=== PATIENT | male | born 1975 ===

== ENCOUNTER → 2024-08-07 06:20 | Day surgery (SDC) | payer BC, SELFPAY | LOC: GI 06:20 | PROVIDERS: ATTENDING PHYSICIAN Surgery | DX: Z12.11 Encounter for screening for malignant neoplasm of colon (principal); K64.9 Unspecified hemorrhoids; K63.5 Polyp of colon; K62.5 Hemorrhage of anus and rectum | CPT/HCPCS: 45380; 88305 ==